=== PATIENT | female | born 1930 | race Caucasian/White ===

== ENCOUNTER 2018-03-27 13:42 | Emergency (ER) | payer MEDICARE, OTHER ==
[~2018-03-27] VITALS: Wt 87.1 kg
[~2018-03-27 13:42] MED LIST: ACETAMINOPHEN-H1 TA2 PO; AMARYL1 MG PO; AMLODIPINE5 MG PO; CALCIUM + D 5001 TAB PO; COLACE50 MG PO; FAMILY PHARMAC325 MG PO; FOSAMAX70 MG PO; HUMALOG100 U/ML SC; HYDR25T PO; K-Dur 20MEQ20 MEQ PO; LEVOTHYROXIN0.025 MG PO; Lovenox40 MG/0.4 SC; MULTI-DAY PLUS1 TA1 PO; NAMENDA1 TAB PO; QUINAPRIL5 MG PO
[2018-03-27 14:36] LABS: BASO # 0.1 10*3/uL (0.0-0.1); BASO % 0.5 % (0.0-1.0); EOS # 0.3 10*3/uL (0.0-0.4); EOS % 2.3 % (1.0-4.0); HEMATOCRIT 39.6 % (37.0-47.0); HEMOGLOBIN 12.6 g/dl (12.0-16.0); LYMPH # 2.4 10*3/uL (1.3-4.4); LYMPH % 22.5 % (27.0-41.0); MEAN CELL VOLUME 97.3 fl (81.0-99.0); MEAN CORPUSCULAR HGB CONC 31.8 g/dl (33.0-37.0); MEAN PLATELET VOLUME 10.7 fl (9.6-12.3); MONO # 0.7 10*3/uL (0.1-1.0); MONO % 6.4 % (3.0-9.0); NEUT # 7.3 10*3/uL (2.3-7.9); NEUT % 67.9 % (47.0-73.0); PLATELET COUNT AUTOMATED 267 10*3/uL (130-400); RED BLOOD COUNT 4.07 10*6/uL (4.10-5.10); RED CELL DISTRI WIDTH 12.5 % (0-14.5); WHITE BLOOD COUNT 10.7 10*3/uL (4.8-10.8)
[2018-03-27 14:55] LABS: ALBUMIN 2.9 gm/dl (3.1-4.5); ALKALINE PHOSPHATASE 96 U/L (45-117); BUN 27 mg/dl (7-24); CHLORIDE 113 mmol/L (98-107); CREATININE 0.85 mg/dL (0.55-1.02); POTASSIUM 3.7 mmol/L (3.5-5.1); SGOT/AST 16 IU/L (3-35); SGPT/ALT 22 U/L (12-78); SODIUM 146 mmol/L (136-145)
[2018-03-27 15:04] LABS: BILIRUBIN NEGATIVE (NEGATIVE); BLOOD 2+ (NEGATIVE); CLARITY CLEAR (CLEAR); COLOR YELLOW (YELLOW); GLUCOSE NEGATIVE (NEGATIVE); KETONE NEGATIVE (NEGATIVE); LEUKO ESTERASE TRACE (NEGATIVE); NITRITE POSITIVE (NEGATIVE); PH 5.5 (5.0-9.0); SPECIFIC GRAVITY 1.015 (1.005-1.030); UROBILINOGEN 0.2 E.U./dl (0.2-1.0)
[2018-03-27 15:22] LABS: BACTERIA 3+; WBC 16-20 wbc/hpf (0-5)
[2018-03-27] MEDS ORDERED: CEPHALEXIN500 M1 PO (17:16)
[2018-03-27] MEDS ORDERED: NYSTATIN1 EAC1 MC (17:16)
== END 2018-03-27 17:45 | disposition home or self-care (01) ==
LOC: ED 13:42
PROVIDERS: Nurse Practitioner Family
DX: N39.0 Urinary tract infection, site not specified (principal); M48.56XA Collapsed vertebra, not elsewhere classified, lumbar region, initial encounter for fracture; L30.8 Other specified dermatitis; R32 Unspecified urinary incontinence; F03.90 Unspecified dementia, unspecified severity, without behavioral disturbance, psychotic disturbance, mood disturbance, and anxiety; Z79.4 Long term (current) use of insulin; Z79.899 Other long term (current) drug therapy

== ENCOUNTER 2019-04-07 14:00 | Inpatient (IN) | payer MEDICARE, OTHER, MEDICAID ==
[~2019-04-07] VITALS: Ht 165.1 cm; Wt 119.7 kg
--- NOTE | ~2019-04-07 | EKG ---
[place], [place] ELECTROCARDIOGRAM REPORT NAME: WERO COBOS UNIT #: [id number] ROOM: 510 DOCTOR: JOSE DRAFT REPORT BIRTHDATE: [birth year] [facility] Test Date: 2019-04-07 Test Time: 19:45:32 Pat Name: WERO COBOS Department: Room: 510 Gender: F Garageman: Jackie Marquez : 1930 Requested By: PREETHI HANDY Order Number: [id number] Reading MD: Rica Vilchis Measurements Intervals [place] Rate: 119 P: MO: QRS: -18 QRSD: 87 T: 27 QT: 323 QTc: 455 Interpretive Statements Atrial fibrillation with RVR Left ventricular hypertrophy Anterior Q waves, possibly due to LVH Compared to ECG 05/06/2018 11:04:01 Q waves now present Atrial premature complex(es) no longer present Electronically Signed On 04-09-2019 11:08:21 PDT by Rica Vilchis CM:EKGRPT:ELECTROCARDIOGRAM REPORT [id number] PREETHI HU DRAFT REPORT PREETHI HANDY DO
--- NOTE | ~2019-04-07 | EKG ---
[place], [place] ELECTROCARDIOGRAM REPORT NAME: WERO COBOS UNIT #: [id number] ROOM: 510 DOCTOR: JOSE DRAFT REPORT BIRTHDATE: [birth year] [facility] Test Date: 2019-04-07 Test Time: 14:05:23 Pat Name: WERO COOBS Department: Room: 510 Gender: F Parts Identifier: : [id number] Requested By: PREETHI HANDY Order Number: [id number] Reading MD: Rica Vilchis Measurements Intervals [place] Rate: 102 P: [place]: QRS: -13 QRSD: 91 T: 24 QT: 366 QTc: 477 Interpretive Statements Atrial Flutter with block Left ventricular hypertrophy Anterior Q waves, possibly due to LVH Compared to ECG 05/06/2018 11:04:01 Q waves now present Atrial premature complex(es) no longer present Electronically Signed On 04-10-2019 11:45:03 PDT by Rica Vilchis CM:EKGRPT:ELECTROCARDIOGRAM REPORT [id number] PREETHI HU DRAFT REPORT PREETHI HANDY DO
--- NOTE | ~2019-04-07 | EKG ---
[place], [place] ELECTROCARDIOGRAM REPORT NAME: WERO COBOS UNIT #: [id number] ROOM: 510 DOCTOR: JOSE DRAFT REPORT BIRTHDATE: [birth year] [place] [facility] Test Date: 2019-04-07 Test Time: 17:29:32 Pat Name: WERO COBOS Department: Room: 510 Gender: F Agricultural Aircraft Pilot: Nerissa Crow : 1930 Requested By: PREETHI HANDY Order Number: [id number] Reading MD: Rica Vilchis Measurements Intervals [place] Rate: 113 P: -9 DC: 174 QRS: -4 QRSD: 91 T: 16 QT: 322 QTc: 442 Interpretive Statements Sinus tachycardia LVH by voltage Compared to ECG 05/06/2018 11:04:01 Atrial premature complex(es) no longer present Electronically Signed On 04-10-2019 11:52:30 PDT by Rica Vilchis CM:EKGRPT:ELECTROCARDIOGRAM REPORT [id number] PREETHI HU DRAFT REPORT PREETHI HANDY DO
[2019-04-07 08:05] VITALS: BP 158/85
[~2019-04-07 14:00] MED LIST changes: +CEPHALEXIN500 M1 PO; +NYSTATIN1 EAC1 MC
--- NOTE | 2019-04-07 14:05 | NUR ---
Respiratory therapy called and at bedside. Patient suctioned for thick yellow sputum. Patient tolerated well. Will continue to closely monitor.
[2019-04-07 14:10] VITALS: BP 174/88
[2019-04-07] MEDS ORDERED: COUMADIN3 M1 PO (14:21)
[2019-04-07] MEDS ORDERED: COUMADIN6 M2 PO (14:21)
[2019-04-07] MEDS ORDERED: B121000 MCG/1 IM (14:22)
[2019-04-07] MEDS ORDERED: FERROUS SULFAT324 M2 PO (14:23)
[2019-04-07] MEDS ORDERED: HUMALOG100 UNIT/2 SQ (14:24)
[2019-04-07] MEDS ORDERED: METFORMIN HCL500 M2 PO (14:24)
[2019-04-07] MEDS ORDERED: SENOKOT8.6 MG PO (14:25)
[2019-04-07] MEDS ORDERED: Synthroid,Levo25 MCG PO (14:25)
[2019-04-07] MEDS ORDERED: Ipratropium Brom3 ML INH (14:26)
[2019-04-07] MEDS ORDERED: ZESTRIL20 MG PO (14:26)
[2019-04-07] MEDS ORDERED: TWOCAL HN 237237 ML PO (14:26)
[2019-04-07] MEDS ORDERED: MILK OF MA400 MG/5 M PO (14:27)
[2019-04-07] MEDS ORDERED: MYLICON, MYLANT80 MG PO (14:27)
[2019-04-07] MEDS ORDERED: TYLENOL325 M2 PO (14:28)
[2019-04-07 14:32] LABS: BASO # 0.1 10*3/uL (0.0-0.1); BASO % 0.3 % (0.0-1.0); EOS # 0.2 10*3/uL (0.0-0.4); EOS % 1.3 % (1.0-4.0); HEMATOCRIT 41.3 % (37.0-47.0); HEMOGLOBIN 13.1 g/dl (12.0-16.0); LYMPH # 3.5 10*3/uL (1.3-4.4); LYMPH % 19.4 % (27.0-41.0); MEAN CELL VOLUME 97.6 fl (81.0-99.0); MEAN CORPUSCULAR HGB CONC 31.7 g/dl (33.0-37.0); MEAN PLATELET VOLUME 10.3 fl (9.6-12.3); MONO # 1.1 10*3/uL (0.1-1.0); NEUT % 72.5 % (47.0-73.0); PLATELET COUNT AUTOMATED 305 10*3/uL (130-400); RED BLOOD COUNT 4.23 10*6/uL (4.10-5.10); RED CELL DISTRI WIDTH 13.3 % (0-14.5); WHITE BLOOD COUNT 17.9 10*3/uL (4.8-10.8)
[2019-04-07 14:42] LABS: ACT PARTIAL THROMBO TIME 33.9 SECONDS (20.0-32.1); INTERNATIONAL NORM RATIO 2.4 (2.0-3.5)
[2019-04-07 14:51] LABS: ALBUMIN 3.5 gm/dl (3.1-4.5); ALKALINE PHOSPHATASE 82 U/L (45-117); BUN 30 mg/dl (7-24); CHLORIDE 102 mmol/L (98-107); CREATININE 0.97 mg/dL (0.55-1.02); POTASSIUM 4.3 mmol/L (3.5-5.1); SGOT/AST 12 IU/L (3-35); SGPT/ALT 22 U/L (12-78); SODIUM 137 mmol/L (136-145); TOTAL PROTEIN 7.7 gm/dL (6.4-8.2)
[2019-04-07 14:54] LABS: TROPONIN I < 0.015 ng/ml (<0.045)
--- NOTE | 2019-04-07 14:54 | NUR ---
Dr. Montilla notified of critical Lactic Acid level.
--- NOTE | 2019-04-07 15:09 | NUR ---
Respiratory called for suctioning/lower pulse ox.
[2019-04-07 16:30] VITALS: BP 182/86
--- NOTE | 2019-04-07 16:33 | NUR ---
Patient NT sxn'd for moderate thick yellow sputum. Some blood noted in secretions. Patient is stable, increased oxygen to 10L via high flow nasal cannula due to borderline SPO2 sat. SPO2 currentl 96% on 10L. Respirations are easy and unlabored at this time.
--- NOTE | 2019-04-07 17:09 | NUR ---
Patient suctioned x1 by RN.
[2019-04-07 17:25] LABS: BILIRUBIN NEGATIVE (NEGATIVE); BLOOD 2+ (NEGATIVE); CLARITY SL CLOUDY (CLEAR); COLOR YELLOW (YELLOW); GLUCOSE NEGATIVE (NEGATIVE); KETONE NEGATIVE (NEGATIVE); LEUKO ESTERASE NEGATIVE (NEGATIVE); NITRITE NEGATIVE (NEGATIVE); SPECIFIC GRAVITY >= 1.030 (1.005-1.030); UROBILINOGEN 0.2 E.U./dl (0.2-1.0)
[2019-04-07 17:41] LABS: BACTERIA 2+; EPITHELIAL CELLS 0-2
[2019-04-07 17:43] VITALS: BP 164/72
--- NOTE | 2019-04-07 17:43 | NUR ---
Patient suctioned with yankeur for thick yellow sputum. Tolerated well. Will continue to monitor.
--- NOTE | 2019-04-07 18:24 | NUR ---
Patient suctioned x1 by RN with ryland for thick white-yellow sputum. Pulse Ox post suction 96% on 10L humidified nasal cannula. Will continue to closely monitor.
--- NOTE | 2019-04-07 19:24 | NUR ---
ASSUMED CARE AT THIS TIME. ORAL SUCTIONING PERFORMED BY NOBLE ALCOCER AT SHIFT HAND OFF. UPON CHECKING ON PATIENT, SHE IS RESTING WITH EYES CLOSED AND HAS MOIST, CONGESTED, PRODUCTIVE COUGH. RESPIRATIONS SLIGHTY TACHYPNIC. NOTED TO HAVE THIN CRUZ PHLEGM ON CHIN. PHLEGM CLEANSED FROM CHIN AND TOWEL DRAPED OVER PATIENT TO PREVENT GOWN BECOMING WET. FAMILY HAS BEEN IN AND OUT AND WANT PATIENT TO BE DISTURBED LITTLE POSSIBLE. THEY REFUSED TO ALLOW PATIENT TO BE TURNED FOR SKIN CHECK AT THIS TIME.
--- NOTE | 2019-04-07 19:44 | NUR ---
ORAL SUCTIONING PERFORMED WITH MODERATE AMOUNT OF THIN CRUZ PHLEGM RETRIEVED. DEEPER MOIST RATTLING NOTED AND PATIENT UNABLE TO COUGH REMAINING PHLEGM UP. ATTEMPTED TO REACH RESPIRATORY TO HAVE DEEP SUCTION PERFOREMED. WILL RE-ATTEMPT.
--- NOTE | 2019-04-07 20:15 | NUR ---
RESTING QUIETLY. RESPIRATORY RECENTLY PERFORMED ORAL SUCTION AND PATIENT IS LESS CONGESTED AT THIS TIME. WILL CONTINUE TO MONITOR.
--- NOTE | 2019-04-07 20:33 | NUR ---
DR HALLMAN NOTIFIED OF LACTIC ACID 3.0
--- NOTE | 2019-04-07 21:00 | NUR ---
ORALLY SUCTIONED FOR THIN CRUZ PHLEGM POST COUGH. TOLERATED WELL. WEIGHT SHIFTED TO LEFT HIP. FAMILY AHS LEFT FOR THE NIGHT. WILL CONTINUE TO MONITOR.
[2019-04-07 22:30] VITALS: BP 165/66
--- NOTE | 2019-04-07 22:30 | NUR ---
LETHARGIC BUT AROUSES TO TACTILE STIMULI. ORIENTED TO SELF ONLY AT TIMES. RESPIRATIONS REGULAR WITH MOIST CONGESTION NOTED WITH RHONCHI AND RALES. HEART RATE REGULAR. ABDOMEN SOFT. SKIN WARM, PALE, AND DRY WITH DEPENDENT EDEMA NOTED TO POSTERIOR BUE AND HIP AREAS.
--- NOTE | 2019-04-07 22:37 | NUR ---
SUCTIONED FOR SMALL AMOUNT OF THICK CRUZ SPUTUM. TOLERATED WELL.
--- NOTE | 2019-04-07 22:40 | NUR ---
TWO AREAS OF CONCERN WOUNDS NOTED TO BILATERAL UPPER BUTTOCKS. APPEARS TO CONTAIN SCAR TISSUE FROM PREVIOUS PRESSURE ULCERS WITH RAISED NON BLANCHING ROLLED AREAS OF SKIN WITH A SMALL SCAB LIKE AREA NOTED TO RIGHT. AREAS ARE TENDER TO TOUCH.
--- NOTE | 2019-04-07 23:03 | NUR ---
CLEANSED FOR BOWEL INCONTINENCE (LARGE), BED LINEN CHANGED, AND RESPOSITIONED TO BACK WITH HEELS FLOATED OFF OF BED. TOLERATED WELL.
[2019-04-08] VITALS (7 sets, daily range): BP systolic 135–179; BP diastolic 54–78
--- NOTE | 2019-04-08 01:02 | NUR ---
SUCTIONED SEVERAL TIMES FOR THICK TANNISH GREEN PHLEGM. TOLERATED WELL. REPOSITIONED ONTO RIGHT.
--- NOTE | 2019-04-08 03:17 | NUR ---
SUCTIONE ORALLY FOR THICK CRUZ PHLEGM. MOUTH CARE PROVIDED. TOLERATED WELL. REPOSITIONED TO BACK AND HEELS ELEVATED OFF OF BED. SIDE RAILS X 2 AND CALL LIGHT WITHIN REACH. WILL CONTINUE TO MONITOR.
--- NOTE | 2019-04-08 03:17 | NUR ---
AGITATED WITH SUCTIONING AND TELLS ME TO STOP WHEN I WIPE HER MOUTH WITH A WET RAG TO REMOVE PHLEGM. RESPIRATIONS REGULAR BUT TACHYPNIC AT TIMES WHEN SHE HAS PHLEGM THAT NEEDS SUCTIONED. HEART RATE REGULAR. SKIN PREVIOUSLY NOTED. HEELS FLOATED.
--- NOTE | 2019-04-08 03:44 | NUR ---
SUCTIONED FOR LARGE AMOUNT OF THICK CRUZ PHLEGM.
--- NOTE | 2019-04-08 04:45 | NUR ---
[facility] CONTACT INFO HOME [phone] AND CELL PHONE [phone] WOULD LIKE CALLED IF CHANGES.
--- NOTE | 2019-04-08 04:58 | NUR ---
REPOSITIONED TO LEFT AND HEELS FLOATED. SUCTIONED. AROUSES WITH TCATILE STIMULI.
--- NOTE | 2019-04-08 05:29 | NUR ---
FAMILY UPDATED AND AWARE WE ARE STILL AWAITING A BED ASSIGNMENT.
[2019-04-08 05:43] LABS: ALBUMIN 2.9 gm/dl (3.1-4.5); CREATININE 1.08 mg/dL (0.55-1.02); PHOSPHOROUS 2.2 mg/dL (2.5-4.9); POTASSIUM 5.1 mmol/L (3.5-5.1); TOTAL PROTEIN 6.8 gm/dL (6.4-8.2)
[2019-04-08 05:44] LABS: FREE T4 1.12 ng/dl (0.76-1.46)
[2019-04-08 05:49] LABS: THYROID STIM HORMONE (HS) 1.01 uIU/ml (0.358-4.75)
[2019-04-08 06:18] LABS: BASO % 0.2 % (0.0-1.0); HEMOGLOBIN 11.7 g/dl (12.0-16.0); LYMPH # 1.3 10*3/uL (1.3-4.4); LYMPH % 8.3 % (27.0-41.0); MEAN CELL VOLUME 97.6 fl (81.0-99.0); MEAN CORPUSCULAR HGB 30.9 pg (27.0-31.0); MEAN CORPUSCULAR HGB CONC 31.6 g/dl (33.0-37.0); MEAN PLATELET VOLUME 10.6 fl (9.6-12.3); MONO # 1.3 10*3/uL (0.1-1.0); NEUT # 13.4 10*3/uL (2.3-7.9); NEUT % 83.3 % (47.0-73.0); PLATELET COUNT AUTOMATED 252 10*3/uL (130-400); RED BLOOD COUNT 3.79 10*6/uL (4.10-5.10); RED CELL DISTRI WIDTH 13.5 % (0-14.5); WHITE BLOOD COUNT 16.1 10*3/uL (4.8-10.8)
--- NOTE | 2019-04-08 06:47 | NUR ---
CLEANSED FOR LARGE BM, REPOSITIONED, AND SUCTIONED FOR LARGE AMOUNT OF CRUZ PHLEGM. TOLERATED WELL. SIDE RAILS X 2.
--- NOTE | 2019-04-08 07:12 | NUR ---
NURSE TO NURSE TO ROB.
[2019-04-08 07:27] LABS: VITAMIN D, 25-HYDROXY 13.2 ng/mL (30-100)
--- NOTE | 2019-04-08 08:05 | NUR ---
A 88, admitted to 5E, under the services of SUSANNAH Castro DO with a diagnosis of ASPIRATION PNEUMONIA. Chief complaint is SOB, RESPIRATORY DISTRESS. Patient arrived via ambulance from ER. Monitor applied. Initial assessment completed. Vital signs taken and recorded. SUSANNAH CASTRO DO notified of admission to the unit. Orders received. See assessment for past medical history, medications and allergies. Patient and/or family oriented to unit. [facility] visitation policy reviewed. Clothing/patient valuable form completed. DEON MONIQUE
--- NOTE | 2019-04-08 09:16 | NUR ---
NOTIFIED OF EXCORIATION TO NECK AND AND OLD, HEALING INTACT WOUND TO BILAT UPPER BUTTOCKS.
[2019-04-08] MEDS ORDERED: B121000 MCG/2 IM (09:35)
[2019-04-08] MEDS ORDERED: TWOCAL HN 237237 ML PO (09:40)
[2019-04-08] MEDS ORDERED: Ipratropium Brom3 ML INH (09:41)
--- NOTE | 2019-04-08 09:43 | NUR ---
MED REC UPDATED VIA LIST PROVIDED BY ROZINA JOSE.
--- NOTE | 2019-04-08 10:39 | NUR ---
REQUESTED DEEP SUCTION TO BE DONE. RT PTATERSON NOTIFIED.
--- NOTE | 2019-04-08 18:10 | NUR ---
Family visiting, updated on plan of care.
--- NOTE | 2019-04-08 20:11 | NUR ---
PATIENT RESTING IN BED WITH DAUGHTER IN LAW AT BEDSIDE. ARROUSES TO VERBAL COMMAND. INCOMPREHENSIBLE SOUNDS. NO S/S OF PAIN. WILL MONITOR. BED IN LOW POSITION, BED ALARM ON, CALL LIGHT IN REACH
[2019-04-09] VITALS: BP 114/72
--- NOTE | 2019-04-09 01:08 | NUR ---
PATIENT RESTING WITH OXGYEN INTACT. RESPS EASY AND REGULAR. NO S/S OF DISTRESS. BED IN LOW POSITION,BED ALARM ON,CALL LIGHT IN REACH
[2019-04-09 06:21] LABS: BUN 20 mg/dl (7-24); CHLORIDE 108 mmol/L (98-107); SODIUM 139 mmol/L (136-145)
[2019-04-09 06:35] LABS: POTASSIUM 3.9 mmol/L (3.5-5.1)
[2019-04-09 06:42] LABS: BASO % 0.3 % (0.0-1.0); EOS # 0.1 10*3/uL (0.0-0.4); EOS % 1.3 % (1.0-4.0); HEMATOCRIT 35.1 % (37.0-47.0); HEMOGLOBIN 11.1 g/dl (12.0-16.0); LYMPH # 0.9 10*3/uL (1.3-4.4); LYMPH % 9.4 % (27.0-41.0); MEAN CELL VOLUME 98.3 fl (81.0-99.0); MEAN CORPUSCULAR HGB 31.1 pg (27.0-31.0); MEAN CORPUSCULAR HGB CONC 31.6 g/dl (33.0-37.0); MEAN PLATELET VOLUME 10.7 fl (9.6-12.3); MONO # 0.6 10*3/uL (0.1-1.0); MONO % 6.2 % (3.0-9.0); NEUT # 7.8 10*3/uL (2.3-7.9); NEUT % 82.4 % (47.0-73.0); PLATELET COUNT AUTOMATED 240 10*3/uL (130-400); RED BLOOD COUNT 3.57 10*6/uL (4.10-5.10); RED CELL DISTRI WIDTH 13.6 % (0-14.5); WHITE BLOOD COUNT 9.5 10*3/uL (4.8-10.8)
[2019-04-09 07:18] LABS: INTERNATIONAL NORM RATIO 1.4 (2.0-3.5)
[2019-04-09 08:00] VITALS: BP 150/52
[2019-04-09 12:00] VITALS: BP 155/54
--- NOTE | 2019-04-09 15:09 | NUR ---
2 SMALL AREAS NOTED ON PT BUTTOCKS , DR DAMON NOTIFIED OF NEEDING WOUND ORDERS
[2019-04-09 16:00] VITALS: BP 118/79
--- NOTE | 2019-04-09 16:50 | NUR ---
SUCTIONED BACK OF PT MOUTH FOR SMALL AMOUNT OF SPUTUM AFTER SHE HAD A PRODUCTIVE COUGH. NT SUCTIONING NOT NEEDED THIS TIME.
[2019-04-09 20:00] VITALS: BP 151/49
[2019-04-10] VITALS: BP 147/70
[2019-04-10 06:31] LABS: BASO % 0.5 % (0.0-1.0); EOS # 0.1 10*3/uL (0.0-0.4); EOS % 1.3 % (1.0-4.0); HEMATOCRIT 36.9 % (37.0-47.0); HEMOGLOBIN 11.6 g/dl (12.0-16.0); LYMPH # 1.1 10*3/uL (1.3-4.4); LYMPH % 12.6 % (27.0-41.0); MEAN CELL VOLUME 97.4 fl (81.0-99.0); MEAN CORPUSCULAR HGB 30.6 pg (27.0-31.0); MEAN CORPUSCULAR HGB CONC 31.4 g/dl (33.0-37.0); MEAN PLATELET VOLUME 10.4 fl (9.6-12.3); MONO # 0.7 10*3/uL (0.1-1.0); MONO % 7.9 % (3.0-9.0); NEUT # 6.5 10*3/uL (2.3-7.9); NEUT % 77.2 % (47.0-73.0); PLATELET COUNT AUTOMATED 253 10*3/uL (130-400); RED BLOOD COUNT 3.79 10*6/uL (4.10-5.10); RED CELL DISTRI WIDTH 13.5 % (0-14.5); WHITE BLOOD COUNT 8.4 10*3/uL (4.8-10.8)
[2019-04-10 06:47] LABS: BUN 21 mg/dl (7-24); CHLORIDE 110 mmol/L (98-107); CREATININE 0.77 mg/dL (0.55-1.02); POTASSIUM 4.3 mmol/L (3.5-5.1); SODIUM 144 mmol/L (136-145)
[2019-04-10 08:00] VITALS: BP 163/64
--- NOTE | 2019-04-10 08:09 | NUR ---
SAILING ATKINSONS Julio [id number] Please refer to the physician's history and physical for past medical history, comorbid conditions, and allergies. Diagnosis: ASPIRATION PNEUMONITIS Aric Score: 12,HIGH RISK WOUND DESCRIPTIONS: Wound #1 left buttock and wound #2 right buttock intact scar tissue. No drainage at time of assessment. No odor noted at time of assessment. Surface the patient is resting on: Position Pro SKIN PREVENTION RECOMMENDATION: 1. Pressure redistribution support surface as appropriate 2. Elevate heels 3. Remove boots/TEDS every shift and reapply 4. Head of bed 30 degrees as tolerated 5. Assess nutrition and hydration 6. Manage moisture 7. Avoid the use of containment devices while in bed 8. Use absorptive products on surfaces limit layers of linens on bed 9. Turn and reposition every 1-2 hours in bed and every 1 hour in chair as tolerated 10. Weight shifts every 15 minutes while up in chair 11. Offloading with pillows or device to keep heels elevated off bed 12. Monitor skin at least every shift 13. Inspect under medical devices twice a day WOUND TREATMENT RECOMMENDATIONS: Dressing change: Cleanse left and right buttock with soap and water pat dry and apply hydraguard and cover with optifoam gentle daily and as needed for soiling. Wheel chair cushion when out of bed.
--- NOTE | 2019-04-10 08:11 | NUR ---
PT RESTING IN BED. NO DISTRESS NOTED. WILL MONITOR
--- NOTE | 2019-04-10 09:01 | NUR ---
PATIENT TOLERATED HER HIGH FLOW NASAL CANNULA SPO2:96%. PATIENT WAS ABLE TO GENERATE A COUGH AND THEN SPUTUM SUCTIONED OUT OF BACK OF THROAT WITH SHAWNA.
--- NOTE | 2019-04-10 09:39 | NUR ---
Spoke with Dr. Man she stated to give them (Wound care recommendations) to the resident.
[2019-04-10 12:00] VITALS: BP 116/69
--- NOTE | 2019-04-10 13:30 | NUR ---
SPEECH PATHOLOGY Clinical swallowing evaluation initiated as per orders due to aspiration. Patient is a longterm resident who was admitted after respiratory distress and aspiration episode at [place]. Medical history includes aspiration pneumonitis, HTN, DM, A-fib, Alzheimer's, sepsis, acute respiratory failure with hypoxia. Patient receives a pureed diet and thin liquid. Patient was seen for assessment this pm during lunchtime meal. Patient was alert but confused and unable to answer questions appropriately or follow commands. Oral motor exam unable to be completed due to her inability to follow commands. She was attempted with a variety of pureed items and liquids. Patient accepted only one small bite and refused any other item despite repeated attempts and encouragment. When spoon was brought to her mouth she would turn her head away and close her mouth. She was shown each food and liquid item but would not accept any. She then became angry and attempted to punch clinician. No further attempts at feeding were made. Due to refusal of food and liquid, her ability to safely tolerate puree and thin liquid is not able to be determined at this time. Will attempt assessment at a later time. Results and abdon. were shared with patient's nurse who verbalized understanding. Thank you for this referral. HAYLEY CAMPO MSCCC-HEAD OF VISUAL MERCHANDISING
--- NOTE | 2019-04-10 15:43 | NUR ---
POT ANNEALER faxed Hospice Referral to [facility]. -EMELI Garay
[2019-04-10 16:00] VITALS: BP 164/95
--- NOTE | 2019-04-10 16:55 | NUR ---
DR ABAD ANSWERING SERVICE NOTIFIED OF CONSULT
[2019-04-10 17:00] VITALS: BP 160/84
[2019-04-10 20:00] VITALS: BP 100/78
[2019-04-11] VITALS: BP 150/55
[2019-04-11 07:42] LABS: INTERNATIONAL NORM RATIO 1.4 (2.0-3.5)
--- NOTE | 2019-04-11 07:50 | NUR ---
PT RESTING IN BED. NO DISTRESS NOTED. WILL MONITOR
[2019-04-11 08:00] VITALS: BP 148/58
--- NOTE | 2019-04-11 09:37 | NUR ---
SPEECH PATHOLOGY Patient seen this am for continued assessment of swallowing skills. Patient was alert with significant confusion. She pulled away from clinician when attempting to properly sit her upright to eat. Patient was shown various food and liquid items on her tray and refused all, either by shaking her head no or turning her head away. Encouragement was provided but patient would not consume anything. Hospice has been consulted on this patient. Will await family's determination of discharge plan and proceed as appropriate. Patient's nurse was educated on results of today's encounter and verbalized understanding. Refer to report in [facility] for further information. Thank you for this referral. HAYLEY CAMPO MS CCC-FINANCIAL CONSULTANT
--- NOTE | 2019-04-11 11:00 | NUR ---
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 -EMELI Garay
--- NOTE | 2019-04-11 11:02 | NUR ---
SPIRAL MACHINE OPERATOR followed up on [facility] referral. Anne Marie at [facility] stated they have a 2pm meeting schedule with the patients son. -EMELI Garay
--- NOTE | 2019-04-11 11:29 | NUR ---
MILLER [employer]OD MILL faxed updates to [facility] -EMELI Garay
[2019-04-11 12:00] VITALS: BP 147/66
--- NOTE | 2019-04-11 14:00 | NUR ---
[facility] HERE TO SEE PT AND FAMILY
--- NOTE | 2019-04-11 14:59 | NUR ---
EMELI was alerted that the patients family did sign consent forms for [facility] and will follow her upon discharge to [facility]. Will alert [facility] at discharge. -EMELI Garay
--- NOTE | 2019-04-11 19:15 | NUR ---
PATIENT RESTING IN BED DOING BREATHING TREATMENT. DOES NOT RESOND VERBALLY. OPENS EYES TO VERBAL COMMAND. BED IN LOWEST POSITION, CALL LIGHT IN REACH
[2019-04-11 20:00] VITALS: BP 152/70
[2019-04-12] VITALS: BP 116/92
--- NOTE | 2019-04-12 03:54 | NUR ---
Upon discharge recommend patient to follow up for wound care in outpatient setting continue current wound care orders at discharging facility.
--- NOTE | 2019-04-12 07:00 | NUR ---
ARRIVED ON SHIFT, INTRODUCED TO PATIENT, NO ACKNOWLEDGEMENT FROM PATIENT, BEDSIDE REPORT RECEIVED, WHITE BOARD UPDATED.
--- NOTE | 2019-04-12 07:28 | NUR ---
RAND CEMENTER faxed updates to [facility] -EMELI Garay
--- NOTE | 2019-04-12 07:48 | NUR ---
Shift chart check completed.
[2019-04-12 08:00] VITALS: BP 165/80
[2019-04-12] MEDS ORDERED: AUGMENTIN 875875 MG PO (11:14)
[2019-04-12] MEDS ORDERED: MORPHINE S10 MG/5 M1 PO (11:14)
[2019-04-12] MEDS ORDERED: ATIVAN ORAL C2 MG/ML PO (11:14)
--- NOTE | 2019-04-12 11:52 | NUR ---
ENTERPRISE INTEGRATION ARCHITECT received notice of the patients discharge. ENTERPRISE INTEGRATION ARCHITECT spoke with Swetha. ENTERPRISE INTEGRATION ARCHITECT contacted [facility] to transport the patient to [facility]. ENTERPRISE INTEGRATION ARCHITECT notified RN of HEM[facility] being here in 15-20mins to transport the patient. ENTERPRISE INTEGRATION ARCHITECT alerted Work Sewing Machine Operator Zipper October. ENTERPRISE INTEGRATION ARCHITECT contacted patients son ED and made him aware of transport back to [facility]. -EMELI Garay
[2019-04-12 12:00] VITALS: BP 151/90
--- NOTE | 2019-04-12 12:06 | NUR ---
CALL PLACED TO ROZINA JOSE, NURSE TO NURSE REPORT GIVEN TO TAY Moody LPN, NO QUESTIONS OR CONCERNS VOICED AT THIS TIME.
--- NOTE | 2019-04-12 12:26 | NUR ---
Discharge instructions reviewed with TAY AT FACILITY. TAY receptive and verbalizes understanding. Follow-up care arranged. Written instructions given to BROILER MANAGER. IV REMOVED. SEAN ZULETA
== END 2019-04-12 12:31 | disposition hospice, home (50) | DRG 871 ==
LOC: ED 14:00 → EDHOLD 15:56 → 5E 15:56 → EDHOLD 17:45 → 5E 04-08 07:34
PROVIDERS: Family Medicine; Internal Medicine; Registered Nurse; ADMIT Emergency Medicine
DX: A41.9 Sepsis, unspecified organism (principal); J69.0 Pneumonitis due to inhalation of food and vomit; J96.01 Acute respiratory failure with hypoxia; E44.0 Moderate protein-calorie malnutrition; N39.0 Urinary tract infection, site not specified; E87.2 Acidosis; Z68.41 Body mass index [BMI] 40.0-44.9, adult; R65.20 Severe sepsis without septic shock; E11.65 Type 2 diabetes mellitus with hyperglycemia; E03.9 Hypothyroidism, unspecified; M81.0 Age-related osteoporosis without current pathological fracture; Z66 Do not resuscitate; Z51.5 Encounter for palliative care; E83.39 Other disorders of phosphorus metabolism; B96.29 Other Escherichia coli [E. coli] as the cause of diseases classified elsewhere; Z16.12 Extended spectrum beta lactamase (ESBL) resistance; I10 Essential (primary) hypertension; G30.9 Alzheimer's disease, unspecified; F02.80 Dementia in other diseases classified elsewhere, unspecified severity, without behavioral disturbance, psychotic disturbance, mood disturbance, and anxiety; Z79.899 Other long term (current) drug therapy; Z79.4 Long term (current) use of insulin; Z79.84 Long term (current) use of oral hypoglycemic drugs; Z79.01 Long term (current) use of anticoagulants; Z87.01 Personal history of pneumonia (recurrent); Z87.440 Personal history of urinary (tract) infections